=== PATIENT | female | born 1990 | race Caucasian/White ===

== ENCOUNTER 2025-04-01 15:02 | Inpatient (IN) | payer MEDICAID ==
[~2025-04-01] VITALS: Ht 149.9 cm; Wt 59.0 kg
[2025-04-01 16:38] LABS: EOSINOPHILS % 0.8 % (0.0-5.0); LYMPHOCYTES % 15.3 % (20.0-50.0); MEAN CORPUSCULAR HEMOGLOBIN 15.2 pg (28.0-32.0); MEAN CORPUSCULAR HGB CONC 26.7 g/dL (31.0-37.0); MEAN CORPUSCULAR VOLUME 56.8 fL (81.0-99.0); MEAN PLATELET VOLUME 8.6 fl (7.4-10.4); MONOCYTES % 5.7 % (2.0-8.0); NEUTROPHILS % 76.2 % (40.0-76.0); PLATELET 374 x1000/uL (130-400); RED BLOOD CELL COUNT 1.84 mill/uL (4.2-5.4); RED CELL DISTRIBUTION WIDTH 22.4 % (11.6-14.6); WHITE BLOOD COUNT 5.9 x1000/uL (4.5-11.0)
[2025-04-01 16:44] LABS: CHLORIDE 108 mEq/L (98-107); SODIUM 141 mEq/L (136-145)
[2025-04-01 16:45] LABS: CARBON DIOXIDE 22 mEq/L (21-32)
[2025-04-01 16:46] LABS: CALCIUM 9.6 mg/dL (8.7-10.4)
[2025-04-01 16:48] LABS: INR 1.2; PROTHROMBIN TIME 12.4 sec (9.6-11.0)
[2025-04-01 16:50] LABS: CREATININE 0.9 mg/dL (0.6-1.0); GLUCOSE 98 mg/dL (70-105)
[2025-04-01 16:51] LABS: DIFFERENTIAL COMMENT 1; UREA NITROGEN BLOOD 11 mg/dL (9-23)
[2025-04-01 16:52] LABS: ALANINE AMINOTRANSFERASE 31 IU/L (10-49); ALBUMIN 4.5 g/dL (3.2-4.8); ASPARTATE AMINOTRANSFERASE 27 IU/L (<34)
[2025-04-01 16:53] LABS: BILIRUBIN DIRECT 0.2 mg/dL (<=3.0); BILIRUBIN TOTAL 0.6 mg/dL (0.1-1.0); HEMOGLOBIN. 2.8 g/dL (12.0-16.0); PROTEIN TOTAL 7.6 g/dL (6.0-8.3)
[2025-04-01 16:54] LABS: ADD RBC MORPHOLOGY YES; HEMATOCRIT. 10.5 % (36.0-48.0)
[2025-04-01 16:55] LABS: TROPONIN I HIGH SENSITIVITY < 4 ng/L (3.0-34)
[2025-04-01 18:17] LABS: ANISOCYTOSIS 2+; PLATELET ESTIMATE NORMAL
[2025-04-01 18:18] LABS: HYPOCHROMASIA 3+; MICROCYTOSIS 3+
[2025-04-01 18:19] LABS: OVALOCYTES 1+; TEAR DROP CELLS 1+
[2025-04-01 19:43] LABS: TROPONIN I HIGH SENSITIVITY < 4 ng/L (3.0-34)
[2025-04-01 20:53] LABS: CLARITY URINE CLOUDY (CLEAR); COLOR URINE YELLOW (YELLOW); GLUCOSE URINE NEGATIVE (NEGATIVE); KETONES URINE NEGATIVE (NEGATIVE); LEUKOCYTE ESTERASE URINE 3+ (NEGATIVE); NITRITE URINE NEGATIVE (NEGATIVE); OCCULT BLOOD URINE NEGATIVE (NEGATIVE); PROTEIN URINE NEGATIVE (NEGATIVE); SPECIFIC GRAVITY URINE 1.009 (1.005-1.030); UROBILINOGEN URINE 0.2 E.U./dL (0.2-1.0)
[2025-04-01 21:08] LABS: BACTERIA URINE 2+; RBC URINE 0-2 /hpf (0-2); SQUAMOUS EPITHELIAL CELL URINE 2+ /lpf (RARE/1+)
[2025-04-01 21:09] LABS: WBC URINE 25-50 /hpf (0-2)
[2025-04-01 23:42] LABS: IRON 14 ug/dL (50-170)
[2025-04-01 23:45] LABS: TOTAL IRON BINDING CAPACITY 354 ug/dl (250-425)
[2025-04-02] VITALS (18 sets, daily range): BP systolic 93–120; BP diastolic 59–78; PULSE 67–93; RESP 14–22; TEMP 36.6696–37.11408; O2SAT 94–100
[2025-04-02] MEDS ORDERED: ACETAMINOPHEN 325MG TABLET PO PRN ×2 (00:15)
[2025-04-02] MEDS ORDERED: DIPHENHYDRAMINE 50MG/ML VIAL IV PRN (00:15)
[2025-04-02] MEDS ORDERED: ZOLPIDEM TARTRATE 5MG TABLET PO PRN (00:15)
[2025-04-02] MEDS ORDERED: MAGNESIUM/ALUMINUM HYDROXIDE/SIMETHICONE 30ML UDC PO PRN (00:15)
[2025-04-02] MEDS: SODIUM CHLORIDE 0.9% 1,000 ML IV SCH (04:35)
[2025-04-02] MEDS: IRON SUCROSE COMPLEX 100 MG/5 ML ML IV SCH (05:29)
[2025-04-02 07:01] LABS: MEAN CORPUSCULAR HEMOGLOBIN 20.5 pg (28.0-32.0); MEAN CORPUSCULAR HGB CONC 29.8 g/dL (31.0-37.0); PLATELET 324 x1000/uL (130-400); RED CELL DISTRIBUTION WIDTH 31.6 % (11.6-14.6); WHITE BLOOD COUNT 8.2 x1000/uL (4.5-11.0)
[2025-04-02 08:12] LABS: HEMATOCRIT 20.7 % (36.0-48.0); HEMOGLOBIN 6.2 g/dL (12.0-16.0)
[2025-04-02 09:54] LABS: BASOPHILS % 0.9 % (0.0-2.0); EOSINOPHILS % 0.6 % (0.0-5.0); LYMPHOCYTES % 14.5 % (20.0-50.0); MEAN CORPUSCULAR HEMOGLOBIN 20.5 pg (28.0-32.0); MEAN CORPUSCULAR HGB CONC 30.1 g/dL (31.0-37.0); MEAN CORPUSCULAR VOLUME 68.2 fL (81.0-99.0); MEAN PLATELET VOLUME 8.5 fl (7.4-10.4); MONOCYTES % 4.4 % (2.0-8.0); NEUTROPHILS % 79.6 % (40.0-76.0); PLATELET 325 x1000/uL (130-400); RED BLOOD CELL COUNT 3.02 mill/uL (4.2-5.4); RED CELL DISTRIBUTION WIDTH 31.6 % (11.6-14.6); WHITE BLOOD COUNT 7.9 x1000/uL (4.5-11.0)
[2025-04-02 10:11] LABS: DIFFERENTIAL COMMENT 1
[2025-04-02 10:13] LABS: HEMATOCRIT. 20.6 % (36.0-48.0); HEMOGLOBIN. 6.2 g/dL (12.0-16.0)
[2025-04-02 16:01] LABS: HEMATOCRIT 25.1 % (36.0-48.0); HEMOGLOBIN 7.6 g/dL (12.0-16.0)
== END 2025-04-02 20:30 | disposition home or self-care (01) | DRG 663 ==
LOC: ER 15:02 → 5EST 18:35 → EDBEDREQ 18:40 → EDBEDREQTM 18:40 → ENRESERV 20:12
PROVIDERS: ADMIT Internal Medicine; ATTEND Internal Medicine
PROC: 30233N1 Transfusion of Nonautologous Red Blood Cells into Peripheral Vein, Percutaneous Approach (ICD-10-PCS; principal; 2025-04-01)
DX: D64.9 Anemia, unspecified (principal); E61.1 Iron deficiency; M79.89 Other specified soft tissue disorders
CPT/HCPCS: 36415; 36430; 80048; 80076; 81003; 83540; 83550; 83880; 84484; 85014; 85018; 85025; 85027; 86850; 86900; 86920; 93005; 99291; A4606; P9016